=== PATIENT | female | born 1985 | race Caucasian/White ===

== ENCOUNTER 2022-10-20 09:59 | Outpatient (CLI) | payer BC | END 2022-10-20 10:00 | disposition home or self-care (01) | LOC: CSHRAD 09:59 | PROVIDERS: ATTEND Family Medicine | DX: M54.2 Cervicalgia (principal); M47.812 Spondylosis without myelopathy or radiculopathy, cervical region | CPT/HCPCS: 72040 ==

== ENCOUNTER 2024-01-26 17:18 | Emergency (ER) | payer BC, OTHER, SELFPAY | END 2024-01-26 18:05 | disposition home or self-care (01) | LOC: CSHERS 17:18 | DX: L08.9 Local infection of the skin and subcutaneous tissue, unspecified (principal); F17.210 Nicotine dependence, cigarettes, uncomplicated | CPT/HCPCS: 99283 ==